=== PATIENT | female | born 1935 | race Two or more races ===

== ENCOUNTER 2025-06-28 08:05 | Day surgery (SDC) | payer OTHER, MEDICAID, SELFPAY ==
[2025-06-27 12:24] VITALS: BMI 45.8
[2025-06-28] VITALS (17 sets, daily range): BP systolic 73–138; BP diastolic 37–60; PULSE 67–81; RESP 12–20; TEMP 36.1–36.7; O2SAT 97–100; BMI 34.2
[2025-06-28] MEDS: SODIUM CHLORIDE 0.9% 500 ML 500 ML 20 ML IV (10:28)
[2025-06-28] MEDS: fentaNYL CIT INJ 50 mCg/ML AMP 2ML (ASD USE ONLY) IVP (10:30)
[2025-06-28] MEDS: MIDAZOLAM INJ 1 MG/ML VIAL 2 ML (ASD USE ONLY) 2 MG IVP (10:44)
--- NOTE | 2025-06-28 11:06 | SUR.PHASEII ---
1101 PATIENT INTO RECOVERY ROOM WITH NO ACUTE DISTRESS NOTED, PATIENT OPENS EYES UPON NAME CALLING, PATIENT NOTED TO BE HYPOTENSIVE BLOOD PRESSURE 80/45. REPORT RECEIVED FROM PETE ZIEGLER. 1106 PATIENT REPOSITIONED BLOOD PRESSURE RECHECKED TWICE, ONCE ON EACH ARM. PATIENT REMAINS HYPOTENSIVE WITH A MAP IN THE 50'S. MADE AWARE. ORDERS BOLUS OF REMAINING NS 250ML.
--- NOTE | 2025-06-28 11:27 | SUR.PHASEII ---
1127 PATIENT 250ML BOLUS IS COMPLETE, CURRENT BLOOD PRESSURE IS 87/41 WITH MAP OF 63. AWARE. PER , PATIENT IS OKAY TO BE DISCHARGED NOW DUE TO INCREASE IN MAP.
--- NOTE | 2025-06-28 13:25 | SUR.PHASEII ---
1140 PATIENT MAP REMAINS ABOVE 60. PATIENT DRINKING APPLE JUICE WITH NO DIIFICULTY. PATIENT GRANDDAUGHTER AT BEDSIDE TO ASSIST PATIENT IN GETTING DRESSED. 1145 IV DISCONTINUED. 1150 PATIENT'S SON KERLINE AT BEDSIDE TO HELP GRANDDAUGHTER TRANSFER PATIENT TO OWN WHEELCHAIR. TRANSFER IS COMPLETED SAFELY. 1155 D/C INSTRUCTIONS GIVEN TO PATIENT'S GRANDDAUGHTER AND SON. PATIENT D/C HOME (LONGTERM). PATIENT, GRANDDAUGHTER, AND SON LEFT VIA PRIVATE MEDICAL TRANSPORT.
== END 2025-06-28 11:55 | disposition home or self-care (01) ==
PROVIDERS: PCP Internal Medicine; Referring Provider Specialist; Visit Provider Specialist
PROC: 0DBE8ZX Excision of Large Intestine, Via Natural or Artificial Opening Endoscopic, Diagnostic (ICD-10-PCS; CPT 45380; principal; 2025-06-28 09:30)
PROC: (CPT 43239; 2025-06-28 09:30)
DX: K64.9 Unspecified hemorrhoids (principal); R19.5 Other fecal abnormalities; K57.30 Diverticulosis of large intestine without perforation or abscess without bleeding; E11.9 Type 2 diabetes mellitus without complications; I10 Essential (primary) hypertension; Z79.899 Other long term (current) drug therapy; Z79.4 Long term (current) use of insulin
CPT/HCPCS: 45378; A4649; J2250; J3010; J7999